=== PATIENT | female | born 1930 | race Two or more races ===

== ENCOUNTER 2017-10-18 13:05 | Inpatient (IN) | payer MEDICARE, OTHER ==
[~2017-10-18] VITALS: Ht 154.9 cm; Wt 73.2 kg
[~2017-10-18 13:05] MED LIST: ASPI-556 PO; CARB-119 PO; CLIN150C9 PO; COSO10OS OP; DICL4100G TP; FERR-89 PO; METF500T6 PO; METO100XL PO; MULT1TAB8 PO; NITR0.4T10 SL; OMEP20 PO; SERT50TA PO; SIMV-261 PO; VALS160T2 PO
[2017-10-18 13:17] LABS: GLUCOSE,POINT OF CARE 124 MG/DL (70-110)
[2017-10-18] MEDS ORDERED: CALC-1038 PO (13:17)
[2017-10-18] MEDS ORDERED: RANI150T7 PO (13:17)
[2017-10-18] MEDS ORDERED: SODIUM CHLORIDE 0.9% 1,000 ML IV ONE ×2 (15:15→19:15)
[2017-10-18] MEDS ORDERED: ONDANSETRON HCL 4 MG/2 ML VIAL IVP ONE (15:15)
[2017-10-18] MEDS ORDERED: PANTOPRAZOLE SODIUM 40 MG/VIAL IVP ONE ×2 (15:15→22:00)
[2017-10-18 15:21] LABS: APPEARANCE,URINE CLOUDY (CLEAR); BILIRUBIN,URINE NEGATIVE (NEGATIVE); GLUCOSE, URINE (UA) NEGATIVE (NEGATIVE); KETONES,URINE NEGATIVE (NEGATIVE); LEUKOCYTE ESTERASE ,URINE SMALL (NEGATIVE); NITRATE,URINE NEGATIVE (NEGATIVE); OCCULT BLOOD,URINE NEGATIVE (NEGATIVE); PROTEIN,URINE NEGATIVE (NEGATIVE)
[2017-10-18 15:29] LABS: RBC,URINE None Seen /HPF (0-2)
[2017-10-18 15:30] LABS: BACTERIA,URINE Few /HPF (None Seen); SQUAMOUS EPITHELIAL CELL,UR Many /LPF (None Seen)
[2017-10-18 16:11] LABS: BASOPHILS % (AUTO) 0.5 % (0.0-2.0); EOSINOPHILS % (AUTO) 0.8 % (1.0-6.0); HEMATOCRIT 21.2 % (36-46); HEMOGLOBIN 7.3 g/dL (12.0-16.0); LYMPHOCYTES % (AUTO) 17.3 % (22.0-44.0); MEAN CORPUSCULAR HEMOGLOBIN 32.6 pg (26.0-34.0); MEAN CORPUSCULAR HGB CONC 34.7 G/dL (31.0-37.0); MEAN CORPUSCULAR VOLUME 94 fL (80-100); MONOCYTES # (AUTO) 0.4 K/uL (0.1-1.0); MONOCYTES % (AUTO) 7.7 % (2.0-9.0); NEUTROPHILS # (AUTO) 4.1 K/uL (1.8-7.7); NEUTROPHILS % (AUTO) 73.7 % (40.0-70.0); PLATELET COUNT (AUTO) 181 K/uL (150-450); RED BLOOD CELL COUNT(AUTO) 2.25 MIL/uL (4.00-5.20); RED CELL DISTRIBUTION WIDTH 13.6 % (11.5-14.5)
[2017-10-18 16:28] LABS: ANION GAP 6 mmol/L (8-16); CALCIUM, TOTAL 8.5 mg/dL (8.8-10.5); CARBON DIOXIDE 27 mmol/L (22-29); CHLORIDE 108 mmol/L (98-107); CREATININE 0.87 mg/dL (0.60-1.30); GLOMERULAR FILTR. RATE CALC > 60 mL/min (>60); GLUCOSE,RANDOM 104 mg/dL (70-110); POTASSIUM 4.6 mmol/L (3.5-5.1); SODIUM SERUM 141 mmol/L (136-145); UREA NITROGEN, BLOOD 49 mg/dL (7-18)
[2017-10-18 16:34] LABS: ALANINE AMINOTRANSFERASE 52 U/L (12-78); ALBUMIN 2.9 g/dL (3.4-5.0); ALKALINE PHOSPHATASE 26 U/L (46-116); ASPARTATE AMINOTRANSFERASE 35 U/L (15-37); BILIRUBIN,TOTAL 0.2 mg/dL (0.1-1.0); LIPASE 83 U/L (73-393); TOTAL PROTEIN, SERUM 5.7 g/dL (6.4-8.2)
[2017-10-18] MEDS ORDERED: ACETAMINOPHEN 325 MG TABLET PO PRN ×2 (17:30)
[2017-10-18] MEDS ORDERED: 0.9% SODIUM CHLORIDE 10 ML SYRINGE IVP PRN (17:30)
[2017-10-18] MEDS ORDERED: ONDANSETRON HCL 4 MG/2 ML VIAL IVP PRN ×2 (17:30)
[2017-10-18 20:57] VITALS: BP 147/83
[2017-10-18] MEDS ORDERED: PANTOPRAZOLE SODIUM 80 MG in SODIUM CHLORIDE 0.9% 100 ML IV SCH (22:00)
[2017-10-18] MEDS ORDERED: SODIUM CHLORIDE 0.9% 250 ML IV ONE (23:17)
[2017-10-19] VITALS (7 sets, daily range): BP systolic 111–128; BP diastolic 61–72
[2017-10-19] MEDS ORDERED: ONDANSETRON HCL 4 MG/2 ML VIAL IVP PRN
[2017-10-19] MEDS: ACETAMINOPHEN 325 MG TABLET PO PRN (00:39)
[2017-10-19 06:43] LABS: GLUCOMETER DEV NAME(LOC) 5N 1P; GLUCOSE,POINT OF CARE 111 MG/DL (70-110)
[2017-10-19 07:11] LABS: HEMATOCRIT 18.4 % (36-46); HEMOGLOBIN 6.4 g/dL (12.0-16.0)
[2017-10-19] MEDS: MetFORMIN HCL 500 MG TABLET PO SCH ×2 (08:00→17:45)
[2017-10-19] MEDS ORDERED: DEXTROSE 50%-WATER 25 GM/50 ML SYRINGE IVP PRN (09:30)
[2017-10-19] MEDS: PANTOPRAZOLE SODIUM 80 MG in SODIUM CHLORIDE 0.9% 100 ML IV SCH ×2 (09:48→20:22)
[2017-10-19] MEDS ORDERED: PANTOPRAZOLE SODIUM 40 MG/VIAL IVP ONE (10:00)
[2017-10-19] MEDS: INSULIN LISPRO 100 UNITS/ML SQ PRN (11:33)
[2017-10-19 11:48] LABS: GLUCOMETER DEV NAME(LOC) 5N 1P; GLUCOSE,POINT OF CARE 86 MG/DL (70-110)
[2017-10-19] MEDS ORDERED: SODIUM CHLORIDE 0.9% 1,000 ML IV ONE ×2 (13:15→13:19)
[2017-10-19] MEDS ORDERED: IRON SUCROSE COMPLEX 200 MG in SODIUM CHLORIDE 0.9% 100 ML IV ONE (15:00)
[2017-10-19] MEDS: SERTRALINE HCL 50 MG TABLET PO SCH (16:06)
[2017-10-19] MEDS: MULTIVITAMINS WITH IRON TABLET PO SCH (16:06)
[2017-10-19] MEDS: CALCIUM OYSTER SHELL 500 MG TABLET PO SCH (16:07)
[2017-10-19] MEDS: CarBAMazepine 200 MG ER TABLET PO SCH ×2 (16:07→21:32)
[2017-10-19] MEDS: VALSARTAN 160 MG TABLET PO SCH (16:07)
[2017-10-19 17:28] LABS: GLUCOMETER DEV NAME(LOC) 5N 1P; GLUCOSE,POINT OF CARE 123 MG/DL (70-110)
[2017-10-19 17:32] LABS: HEMATOCRIT 20.3 % (36-46)
[2017-10-20 01:03] VITALS: BP 121/60
[2017-10-20 01:25] LABS: HEMATOCRIT 17.5 % (36-46); HEMOGLOBIN 6.1 g/dL (12.0-16.0)
[2017-10-20 03:47] LABS: GLUCOMETER DEV NAME(LOC) 5S 1M; GLUCOSE,POINT OF CARE 106 MG/DL (70-110)
[2017-10-20 04:56] VITALS: BP 132/73
[2017-10-20] MEDS: PANTOPRAZOLE SODIUM 80 MG in SODIUM CHLORIDE 0.9% 100 ML IV SCH ×2 (06:27→17:21)
[2017-10-20] MEDS ORDERED: PROPOFOL 1% 20 ML VIAL IVP ONE (06:59)
[2017-10-20] MEDS ORDERED: LIDOCAINE HCL/PF 2% 5 ML VIAL IM ONE (06:59)
[2017-10-20 07:27] VITALS: BP 97/48
[2017-10-20 07:42] LABS: HEMATOCRIT 17.9 % (36-46); HEMOGLOBIN 6.2 g/dL (12.0-16.0)
[2017-10-20] MEDS: VALSARTAN 160 MG TABLET PO SCH (08:26)
[2017-10-20] MEDS: CarBAMazepine 200 MG ER TABLET PO SCH ×2 (08:26→20:08)
[2017-10-20] MEDS: SERTRALINE HCL 50 MG TABLET PO SCH (08:26)
[2017-10-20] MEDS: MetFORMIN HCL 500 MG TABLET PO SCH ×2 (08:26→17:21)
[2017-10-20] MEDS: MULTIVITAMINS WITH IRON TABLET PO SCH (08:27)
[2017-10-20] MEDS: CALCIUM OYSTER SHELL 500 MG TABLET PO SCH (08:27)
[2017-10-20] MEDS ORDERED: MAGNESIUM SULFATE 2 GM, MVI, ADULT NO.1 WITH VIT K 10 ML, THIAMINE HCL 100 MG, FOLIC AC... IV ONE ×5 (09:45)
[2017-10-20 11:31] VITALS: BP 104/64
[2017-10-20] MEDS: FOLIC ACID 1 MG TABLET PO SCH ×2 (11:58→20:08)
[2017-10-20 12:08] LABS: GLUCOMETER DEV NAME(LOC) 5S 1M; GLUCOSE,POINT OF CARE 99 MG/DL (70-110)
[2017-10-20 12:08] LABS: GLUCOMETER DEV NAME(LOC) 5S 1M; GLUCOSE,POINT OF CARE 96 MG/DL (70-110)
[2017-10-20 15:46] VITALS: BP 110/60
[2017-10-20 19:34] VITALS: BP 101/57
[2017-10-20 23:03] LABS: GLUCOMETER DEV NAME(LOC) 5S 1M; GLUCOSE,POINT OF CARE 134 MG/DL (70-110)
[2017-10-21] VITALS (7 sets, daily range): BP systolic 97–128; BP diastolic 52–71
[2017-10-21 01:22] LABS: GLUCOMETER DEV NAME(LOC) 5N 1P; GLUCOSE,POINT OF CARE 98 MG/DL (70-110)
[2017-10-21] MEDS: DEXTROSE 5%-0.9% SODIUM CHL 1,000 ML IV SCH ×3 (01:27→22:02)
[2017-10-21] MEDS: PANTOPRAZOLE SODIUM 80 MG in SODIUM CHLORIDE 0.9% 100 ML IV SCH ×3 (03:31→22:28)
[2017-10-21] MEDS: INSULIN LISPRO 100 UNITS/ML SQ PRN ×2 (05:52→20:51)
[2017-10-21 05:57] LABS: GLUCOMETER DEV NAME(LOC) 5S 1M; GLUCOSE,POINT OF CARE 152 MG/DL (70-110)
[2017-10-21] MEDS: CALCIUM OYSTER SHELL 500 MG TABLET PO SCH (08:01)
[2017-10-21] MEDS: MetFORMIN HCL 500 MG TABLET PO SCH ×2 (08:01→17:22)
[2017-10-21] MEDS: SERTRALINE HCL 50 MG TABLET PO SCH (08:01)
[2017-10-21] MEDS: CarBAMazepine 200 MG ER TABLET PO SCH ×2 (08:01→20:52)
[2017-10-21] MEDS: MULTIVITAMINS WITH IRON TABLET PO SCH (08:01)
[2017-10-21] MEDS: FOLIC ACID 1 MG TABLET PO SCH ×2 (08:01→20:58)
[2017-10-21] MEDS: VALSARTAN 160 MG TABLET PO SCH (08:05)
[2017-10-21 11:43] LABS: GLUCOMETER DEV NAME(LOC) 5N 1P; GLUCOSE,POINT OF CARE 124 MG/DL (70-110)
[2017-10-21 18:03] LABS: GLUCOMETER DEV NAME(LOC) 5S 1M; GLUCOSE,POINT OF CARE 107 MG/DL (70-110)
[2017-10-22 03:13] LABS: GLUCOMETER DEV NAME(LOC) 5N 1P; GLUCOSE,POINT OF CARE 158 MG/DL (70-110)
[2017-10-22] MEDS: INSULIN LISPRO 100 UNITS/ML SQ PRN ×2 (05:56→20:08)
[2017-10-22] MEDS: PANTOPRAZOLE SODIUM 80 MG in SODIUM CHLORIDE 0.9% 100 ML IV SCH ×2 (06:22→17:44)
[2017-10-22 07:37] VITALS: BP 101/46
[2017-10-22] MEDS: VALSARTAN 160 MG TABLET PO SCH (07:42)
[2017-10-22] MEDS: MetFORMIN HCL 500 MG TABLET PO SCH ×2 (07:42→17:44)
[2017-10-22] MEDS: CarBAMazepine 200 MG ER TABLET PO SCH ×2 (07:43→20:09)
[2017-10-22] MEDS: FOLIC ACID 1 MG TABLET PO SCH ×2 (07:43→20:09)
[2017-10-22] MEDS: SERTRALINE HCL 50 MG TABLET PO SCH (07:43)
[2017-10-22] MEDS: CALCIUM OYSTER SHELL 500 MG TABLET PO SCH (07:43)
[2017-10-22] MEDS: MULTIVITAMINS WITH IRON TABLET PO SCH (07:43)
[2017-10-22] MEDS: DEXTROSE 5%-0.9% SODIUM CHL 1,000 ML IV SCH ×2 (07:44→17:50)
[2017-10-22 10:00] LABS: BASOPHILS % (AUTO) 0.6 % (0.0-2.0); EOSINOPHILS % (AUTO) 3.4 % (1.0-6.0); LYMPHOCYTES # (AUTO) 0.9 K/uL (1.0-4.8); LYMPHOCYTES % (AUTO) 21.8 % (22.0-44.0); MEAN CORPUSCULAR HEMOGLOBIN 33.8 pg (26.0-34.0); MEAN CORPUSCULAR HGB CONC 34.8 G/dL (31.0-37.0); MEAN CORPUSCULAR VOLUME 97 fL (80-100); MONOCYTES # (AUTO) 0.3 K/uL (0.1-1.0); MONOCYTES % (AUTO) 7.6 % (2.0-9.0); NEUTROPHILS # (AUTO) 2.6 K/uL (1.8-7.7); NEUTROPHILS % (AUTO) 66.6 % (40.0-70.0); PLATELET COUNT (AUTO) 203 K/uL (150-450); RED BLOOD CELL COUNT(AUTO) 1.88 MIL/uL (4.00-5.20); RED CELL DISTRIBUTION WIDTH 14.3 % (11.5-14.5)
[2017-10-22 10:08] LABS: ANION GAP 7 mmol/L (8-16); CALCIUM, TOTAL 7.4 mg/dL (8.8-10.5); CARBON DIOXIDE 24 mmol/L (22-29); CHLORIDE 110 mmol/L (98-107); CREATININE 0.73 mg/dL (0.60-1.30); GLOMERULAR FILTR. RATE CALC > 60 mL/min (>60); GLUCOSE,RANDOM 105 mg/dL (70-110); HEMOGLOBIN 6.4 g/dL (12.0-16.0); POTASSIUM 3.9 mmol/L (3.5-5.1); SODIUM SERUM 141 mmol/L (136-145); UREA NITROGEN, BLOOD 3 mg/dL (7-18)
[2017-10-22 10:09] LABS: HEMATOCRIT 18.3 % (36-46)
[2017-10-22 10:14] LABS: ALANINE AMINOTRANSFERASE 39 U/L (12-78); ALBUMIN 2.9 g/dL (3.4-5.0); ALKALINE PHOSPHATASE 25 U/L (46-116); ASPARTATE AMINOTRANSFERASE 19 U/L (15-37); BILIRUBIN,TOTAL 0.1 mg/dL (0.1-1.0); TOTAL PROTEIN, SERUM 5.7 g/dL (6.4-8.2)
[2017-10-22] MEDS ORDERED: IRON SUCROSE COMPLEX 100 MG in SODIUM CHLORIDE 0.9% 100 ML IV SCH (11:00)
[2017-10-22 11:38] LABS: GLUCOMETER DEV NAME(LOC) 5N 1P; GLUCOSE,POINT OF CARE 109 MG/DL (70-110)
[2017-10-22 11:38] LABS: GLUCOMETER DEV NAME(LOC) 5N 1P; GLUCOSE,POINT OF CARE 81 MG/DL (70-110)
[2017-10-22 12:06] VITALS: BP 139/81
[2017-10-22 15:14] VITALS: BP 122/60
[2017-10-22] MEDS ORDERED: MAGNESIUM SULFATE 2 GM, MVI, ADULT NO.1 WITH VIT K 10 ML, THIAMINE HCL 100 MG, FOLIC AC... IV ONE ×5 (16:30)
[2017-10-22 19:57] VITALS: BP 140/62
[2017-10-22 21:18] LABS: GLUCOMETER DEV NAME(LOC) 5N 1P; GLUCOSE,POINT OF CARE 110 MG/DL (70-110)
[2017-10-22 23:44] VITALS: BP 115/53
[2017-10-23] MEDS: PANTOPRAZOLE SODIUM 80 MG in SODIUM CHLORIDE 0.9% 100 ML IV SCH (04:31)
[2017-10-23 04:48] VITALS: BP 124/61
[2017-10-23 05:02] LABS: GLUCOMETER DEV NAME(LOC) 5S 1M; GLUCOSE,POINT OF CARE 121 MG/DL (70-110)
[2017-10-23] MEDS: DEXTROSE 5%-0.9% SODIUM CHL 1,000 ML IV SCH ×2 (06:15→16:21)
[2017-10-23] MEDS: INSULIN LISPRO 100 UNITS/ML SQ PRN (06:17)
[2017-10-23 07:31] VITALS: BP 131/69
[2017-10-23] MEDS: ACETAMINOPHEN 325 MG TABLET PO PRN (07:32)
[2017-10-23 08:13] LABS: GLUCOMETER DEV NAME(LOC) 5N 1P; GLUCOSE,POINT OF CARE 89 MG/DL (70-110)
[2017-10-23] MEDS: VALSARTAN 160 MG TABLET PO SCH (08:14)
[2017-10-23] MEDS: SERTRALINE HCL 50 MG TABLET PO SCH (08:15)
[2017-10-23] MEDS: MetFORMIN HCL 500 MG TABLET PO SCH ×2 (08:15→17:47)
[2017-10-23] MEDS: CarBAMazepine 200 MG ER TABLET PO SCH ×2 (08:15→20:45)
[2017-10-23] MEDS: CALCIUM OYSTER SHELL 500 MG TABLET PO SCH (08:15)
[2017-10-23] MEDS: MULTIVITAMINS WITH IRON TABLET PO SCH (08:15)
[2017-10-23] MEDS: FOLIC ACID 1 MG TABLET PO SCH ×2 (08:15→20:45)
[2017-10-23 09:07] LABS: HEMOGLOBIN 6.1 g/dL (12.0-16.0)
[2017-10-23 11:21] VITALS: BP 131/60
[2017-10-23 16:07] LABS: GLUCOMETER DEV NAME(LOC) 5N 1P; GLUCOSE,POINT OF CARE 113 MG/DL (70-110)
[2017-10-23 16:22] VITALS: BP 132/70
[2017-10-23 18:08] LABS: GLUCOMETER DEV NAME(LOC) 5S 1M; GLUCOSE,POINT OF CARE 110 MG/DL (70-110)
[2017-10-23 19:19] VITALS: BP 145/76
[2017-10-23] MEDS: PANTOPRAZOLE SODIUM 40 MG/VIAL IVP SCH (20:45)
[2017-10-24] VITALS (7 sets, daily range): BP systolic 114–144; BP diastolic 57–79
[2017-10-24] MEDS: DEXTROSE 5%-0.9% SODIUM CHL 1,000 ML IV SCH (04:16)
[2017-10-24 04:32] LABS: GLUCOMETER DEV NAME(LOC) 5N 1P; GLUCOSE,POINT OF CARE 119 MG/DL (70-110)
[2017-10-24] MEDS: IRON SUCROSE COMPLEX 100 MG in SODIUM CHLORIDE 0.9% 100 ML IV SCH (08:54)
[2017-10-24] MEDS: FOLIC ACID 1 MG TABLET PO SCH ×2 (08:55→20:55)
[2017-10-24] MEDS: PANTOPRAZOLE SODIUM 40 MG/VIAL IVP SCH ×2 (08:55→20:55)
[2017-10-24] MEDS: VALSARTAN 160 MG TABLET PO SCH (08:56)
[2017-10-24] MEDS: MULTIVITAMINS WITH IRON TABLET PO SCH (08:56)
[2017-10-24] MEDS: SERTRALINE HCL 50 MG TABLET PO SCH (08:56)
[2017-10-24] MEDS: CarBAMazepine 200 MG ER TABLET PO SCH ×2 (08:56→20:55)
[2017-10-24] MEDS: CALCIUM OYSTER SHELL 500 MG TABLET PO SCH (08:56)
[2017-10-24] MEDS: MetFORMIN HCL 500 MG TABLET PO SCH ×2 (08:56→17:31)
[2017-10-24 09:27] LABS: GLUCOMETER DEV NAME(LOC) 5S 1M; GLUCOSE,POINT OF CARE 112 MG/DL (70-110)
[2017-10-24 09:42] LABS: HEMOGLOBIN 6.3 g/dL (12.0-16.0)
[2017-10-24] MEDS: ACETAMINOPHEN 325 MG TABLET PO PRN ×2 (09:42→21:08)
[2017-10-24 14:03] LABS: GLUCOMETER DEV NAME(LOC) 5S 1M; GLUCOSE,POINT OF CARE 87 MG/DL (70-110)
[2017-10-25 04:32] VITALS: BP 120/59
[2017-10-25 07:36] VITALS: BP 117/78
[2017-10-25 07:52] LABS: HEMATOCRIT 17.2 % (36-46)
[2017-10-25 07:58] LABS: GLUCOMETER DEV NAME(LOC) 5N 1P; GLUCOSE,POINT OF CARE 107 MG/DL (70-110)
[2017-10-25 07:58] LABS: GLUCOMETER DEV NAME(LOC) 5N 1P; GLUCOSE,POINT OF CARE 92 MG/DL (70-110)
[2017-10-25 07:58] LABS: GLUCOMETER DEV NAME(LOC) 5N 1P; GLUCOSE,POINT OF CARE 94 MG/DL (70-110)
[2017-10-25] MEDS: MetFORMIN HCL 500 MG TABLET PO SCH ×2 (09:18→17:51)
[2017-10-25] MEDS: MULTIVITAMINS WITH IRON TABLET PO SCH (09:18)
[2017-10-25] MEDS: PANTOPRAZOLE SODIUM 40 MG/VIAL IVP SCH ×2 (09:18→20:50)
[2017-10-25] MEDS: CarBAMazepine 200 MG ER TABLET PO SCH ×2 (09:18→20:50)
[2017-10-25] MEDS: VALSARTAN 160 MG TABLET PO SCH (09:18)
[2017-10-25] MEDS: SERTRALINE HCL 50 MG TABLET PO SCH (09:19)
[2017-10-25] MEDS: FOLIC ACID 1 MG TABLET PO SCH ×2 (09:19→20:50)
[2017-10-25] MEDS: CALCIUM OYSTER SHELL 500 MG TABLET PO SCH (09:19)
[2017-10-25 12:07] VITALS: BP 135/64
[2017-10-25] MEDS: SUCRALFATE 1 GM/10 ML SUSPENSION UDCUP PO SCH ×3 (12:46→20:50)
[2017-10-25 13:32] LABS: GLUCOMETER DEV NAME(LOC) 5S 1M; GLUCOSE,POINT OF CARE 93 MG/DL (70-110)
[2017-10-25 15:33] VITALS: BP 133/92
[2017-10-25 18:53] LABS: GLUCOMETER DEV NAME(LOC) 5N 1P; GLUCOSE,POINT OF CARE 95 MG/DL (70-110)
[2017-10-25 19:39] VITALS: BP 149/86
[2017-10-25 22:32] LABS: GLUCOMETER DEV NAME(LOC) 5N 1P; GLUCOSE,POINT OF CARE 89 MG/DL (70-110)
[2017-10-25 23:55] VITALS: BP 155/85
[2017-10-26 04:58] VITALS: BP 132/63
[2017-10-26 06:38] LABS: GLUCOMETER DEV NAME(LOC) 5N 1P; GLUCOSE,POINT OF CARE 97 MG/DL (70-110)
[2017-10-26 06:51] LABS: HEMATOCRIT 17.1 % (36-46)
[2017-10-26 07:27] VITALS: BP 142/80
[2017-10-26] MEDS: CALCIUM OYSTER SHELL 500 MG TABLET PO SCH (08:32)
[2017-10-26] MEDS: FOLIC ACID 1 MG TABLET PO SCH (08:32)
[2017-10-26] MEDS: MULTIVITAMINS WITH IRON TABLET PO SCH (08:32)
[2017-10-26] MEDS: CarBAMazepine 200 MG ER TABLET PO SCH (08:32)
[2017-10-26] MEDS: VALSARTAN 160 MG TABLET PO SCH (08:32)
[2017-10-26] MEDS: MetFORMIN HCL 500 MG TABLET PO SCH (08:32)
[2017-10-26] MEDS: PANTOPRAZOLE SODIUM 40 MG/VIAL IVP SCH (08:33)
[2017-10-26] MEDS: IRON SUCROSE COMPLEX 100 MG in SODIUM CHLORIDE 0.9% 100 ML IV SCH (08:33)
[2017-10-26] MEDS: SUCRALFATE 1 GM/10 ML SUSPENSION UDCUP PO SCH ×2 (08:33→12:02)
[2017-10-26] MEDS ORDERED: SERTRALINE HCL 50 MG TABLET PO SCH (09:00)
[2017-10-26] MEDS ORDERED: ACET-784 PO (10:35)
[2017-10-26] MEDS ORDERED: PANT40TA25 PO (10:36)
[2017-10-26] MEDS ORDERED: SUCR1TAB PO (10:36)
[2017-10-26] MEDS ORDERED: FOLI1 PO (10:37)
[2017-10-26 11:48] VITALS: BP 132/71
[2017-10-26] MEDS ORDERED: FERR-89 PO (15:01)
[2017-10-27 06:23] LABS: GLUCOMETER DEV NAME(LOC) 5S 1M; GLUCOSE,POINT OF CARE 110 MG/DL (70-110)
== END 2017-10-26 15:30 | disposition home or self-care (01) | DRG 378 ==
LOC: EMS 13:06 → 5S 19:00
PROVIDERS: ADMIT Internal Medicine; ATTEND Internal Medicine
PROC: 0DB78ZX Excision of Stomach, Pylorus, Via Natural or Artificial Opening Endoscopic, Diagnostic (ICD-10-PCS; principal; 2017-10-19 14:30)
DX: K25.4 Chronic or unspecified gastric ulcer with hemorrhage (principal); D62 Acute posthemorrhagic anemia; E11.9 Type 2 diabetes mellitus without complications; D71 Functional disorders of polymorphonuclear neutrophils; E78.00 Pure hypercholesterolemia, unspecified; E78.5 Hyperlipidemia, unspecified; F32.9 Major depressive disorder, single episode, unspecified; I10 Essential (primary) hypertension; K21.9 Gastro-esophageal reflux disease without esophagitis; I70.0 Atherosclerosis of aorta; K57.90 Diverticulosis of intestine, part unspecified, without perforation or abscess without bleeding; M19.90 Unspecified osteoarthritis, unspecified site; M81.0 Age-related osteoporosis without current pathological fracture; Z53.1 Procedure and treatment not carried out because of patient's decision for reasons of belief and group pressure; Z90.710 Acquired absence of both cervix and uterus; Z88.8 Allergy status to other drugs, medicaments and biological substances; Z79.82 Long term (current) use of aspirin; Z82.49 Family history of ischemic heart disease and other diseases of the circulatory system; Z83.3 Family history of diabetes mellitus
CPT/HCPCS: 74176; 82271; 85014; 85018; 88305; 88312; 93005; 96361; 96374; 96375; 99285; C9113; J1756; J2405; J2704; J3411; J3475; J3490; J7030; J7042; J7050

== ENCOUNTER → 2018-07-20 | Outpatient (CLI) | payer MEDICARE, OTHER ==
[~2018-07-20] MED LIST changes: +ACET-784 PO; -ASPI-556 PO; +ASPI81 PO; +CALC-1038 PO; +CARV6 PO; -CLIN150C9 PO; -COSO10OS OP; -DICL4100G TP; +LOSA100T58 PO; +METF-960 PO; -METF500T6 PO; -METO100XL PO; -NITR0.4T10 SL; -OMEP20 PO; +PANT40TA25 PO; +SIMV-260 PO; -SIMV-261 PO; -VALS160T2 PO; +VITAD1000 PO
[2018-07-20 13:10] LABS: BASOPHILS % (AUTO) 0.8 % (0.0-2.0); EOSINOPHILS % (AUTO) 2.8 % (1.0-6.0); HEMATOCRIT 25.9 % (36-46); HEMOGLOBIN 8.8 g/dL (12.0-16.0); LYMPHOCYTES % (AUTO) 20.1 % (22.0-44.0); MEAN CORPUSCULAR HEMOGLOBIN 33.5 pg (26.0-34.0); MEAN CORPUSCULAR VOLUME 98 fL (80-100); MONOCYTES # (AUTO) 0.5 K/uL (0.1-1.0); MONOCYTES % (AUTO) 8.9 % (2.0-9.0); NEUTROPHILS # (AUTO) 3.4 K/uL (1.8-7.7); NEUTROPHILS % (AUTO) 67.4 % (40.0-70.0); PLATELET COUNT (AUTO) 313 K/uL (150-450); RED BLOOD CELL COUNT(AUTO) 2.64 MIL/uL (4.00-5.20); RED CELL DISTRIBUTION WIDTH 15.4 % (11.5-14.5)
[2018-07-20 13:51] LABS: ALBUMIN 3.6 g/dL (3.4-5.0); ALKALINE PHOSPHATASE 35 U/L (46-116); ANION GAP 6 mmol/L (8-16); ASPARTATE AMINOTRANSFERASE 21 U/L (15-37); BILIRUBIN,TOTAL 0.2 mg/dL (0.1-1.0); CALCIUM, TOTAL 9.3 mg/dL (8.8-10.5); CARBON DIOXIDE 29 mmol/L (22-29); CHLORIDE 100 mmol/L (98-107); CREATININE 0.75 mg/dL (0.60-1.30); GLUCOSE,RANDOM 98 mg/dL (70-110); POTASSIUM 4.9 mmol/L (3.5-5.1); SODIUM SERUM 135 mmol/L (136-145); TOTAL PROTEIN, SERUM 7.1 g/dL (6.4-8.2); UREA NITROGEN, BLOOD 17 mg/dL (7-18)
[2018-07-20 13:53] LABS: GLOMERULAR FILTR. RATE CALC > 60 mL/min (>60)
[2018-07-20 14:00] LABS: ALANINE AMINOTRANSFERASE 21 U/L (12-78)
[2018-07-20 14:24] LABS: HEMOGLOBIN A1C 5.8 % (4.5-6.2)
== END | disposition home or self-care (01) ==
LOC: LABPV 10:05
PROVIDERS: ATTEND Internal Medicine Cardiovascular Disease
DX: D64.9 Anemia, unspecified (principal); R00.2 Palpitations; E11.9 Type 2 diabetes mellitus without complications
CPT/HCPCS: 83036

== ENCOUNTER → 2018-08-17 | Outpatient (CLI) | payer MEDICARE, OTHER | END | disposition home or self-care (01) | LOC: RADMN 09:38 | PROVIDERS: ATTEND General Practice | DX: I67.82 Cerebral ischemia (principal); I70.209 Unspecified atherosclerosis of native arteries of extremities, unspecified extremity; J32.0 Chronic maxillary sinusitis | CPT/HCPCS: 70450; 70486 ==

== ENCOUNTER → 2018-08-31 | Outpatient (CLI) | payer MEDICARE, OTHER ==
[~2018-08-31] VITALS: Ht 147.3 cm; Wt 75.0 kg
[~2018-08-31] MED LIST changes: +ATOR40TA28 PO; +OYSTER SHELL PO; +[UNRECOGNIZED DRUG - OTHER] PO
[2018-08-31 10:55] VITALS: BP 140/87
== END | disposition home or self-care (01) ==
LOC: SRCNTR 10:35
PROVIDERS: ATTEND Internal Medicine Cardiovascular Disease
DX: E78.5 Hyperlipidemia, unspecified (principal); E11.9 Type 2 diabetes mellitus without complications; K92.2 Gastrointestinal hemorrhage, unspecified; I10 Essential (primary) hypertension; D64.9 Anemia, unspecified
CPT/HCPCS: G0463

== ENCOUNTER → 2018-10-25 | Outpatient (CLI) | payer MEDICARE, OTHER ==
[~2018-10-25] MED LIST changes: -CARV6 PO; -METF-960 PO
[2018-10-25 12:58] LABS: BASOPHILS % (AUTO) 0.8 % (0.0-2.0); EOSINOPHILS % (AUTO) 3.2 % (1.0-6.0); HEMATOCRIT 34.2 % (36-46); HEMOGLOBIN 11.4 g/dL (12.0-16.0); LYMPHOCYTES # (AUTO) 1.1 K/uL (1.0-4.8); MEAN CORPUSCULAR HGB CONC 33.4 G/dL (31.0-37.0); MEAN CORPUSCULAR VOLUME 96 fL (80-100); MONOCYTES # (AUTO) 0.5 K/uL (0.1-1.0); MONOCYTES % (AUTO) 10.3 % (2.0-9.0); NEUTROPHILS # (AUTO) 3.1 K/uL (1.8-7.7); NEUTROPHILS % (AUTO) 63.7 % (40.0-70.0); PLATELET COUNT (AUTO) 196 K/uL (150-450); RED BLOOD CELL COUNT(AUTO) 3.56 MIL/uL (4.00-5.20); RED CELL DISTRIBUTION WIDTH 14.4 % (11.5-14.5)
[2018-10-25 13:30] LABS: ALANINE AMINOTRANSFERASE 13 U/L (12-78); ALBUMIN 3.5 g/dL (3.4-5.0); ALKALINE PHOSPHATASE 47 U/L (46-116); ANION GAP 7 mmol/L (8-16); ASPARTATE AMINOTRANSFERASE 17 U/L (15-37); BILIRUBIN,TOTAL 0.2 mg/dL (0.1-1.0); CARBON DIOXIDE 28 mmol/L (22-29); CHLORIDE 104 mmol/L (98-107); CHOL/HDL RATIO 3.8 (3.9-5.7); CHOLESTEROL 162 mg/dL (131-200); CREATININE 0.67 mg/dL (0.60-1.30); GLUCOSE,RANDOM 103 mg/dL (70-110); HDL CHOLESTEROL 43 mg/dL (40-60); LDL CHOL (CALC.) 98 mg/dL (0-130); POTASSIUM 5.2 mmol/L (3.5-5.1); SODIUM SERUM 139 mmol/L (136-145); TRIGLYCERIDES 103 mg/dL (15-150); UREA NITROGEN, BLOOD 19 mg/dL (7-18)
[2018-10-25 13:31] LABS: GLOMERULAR FILTR. RATE CALC > 60 mL/min (>60)
== END | disposition home or self-care (01) ==
LOC: LABPV 10:29
PROVIDERS: ATTEND Internal Medicine Cardiovascular Disease
DX: K92.2 Gastrointestinal hemorrhage, unspecified (principal); D64.9 Anemia, unspecified; E11.9 Type 2 diabetes mellitus without complications; I10 Essential (primary) hypertension; E78.5 Hyperlipidemia, unspecified; K21.9 Gastro-esophageal reflux disease without esophagitis; Z90.710 Acquired absence of both cervix and uterus; E78.00 Pure hypercholesterolemia, unspecified; Z88.8 Allergy status to other drugs, medicaments and biological substances

== ENCOUNTER → 2018-11-01 | Outpatient (CLI) | payer MEDICARE, OTHER ==
[~2018-11-01] VITALS: Ht 147.3 cm; Wt 75.0 kg
[2018-11-01 14:46] VITALS: BP 128/61
== END | disposition home or self-care (01) ==
LOC: SRCNTR 14:17
PROVIDERS: ATTEND Internal Medicine Cardiovascular Disease
DX: I10 Essential (primary) hypertension (principal); E11.9 Type 2 diabetes mellitus without complications; E78.5 Hyperlipidemia, unspecified; M19.90 Unspecified osteoarthritis, unspecified site; D64.9 Anemia, unspecified
CPT/HCPCS: G0463

== ENCOUNTER 2019-03-29 14:59 | Emergency (ER) | payer MEDICARE, OTHER ==
[~2019-03-29] VITALS: Ht 152.4 cm; Wt 68.2 kg
[~2019-03-29 14:59] MED LIST changes: +CHOL100018 PO; -VITAD1000 PO
[2019-03-29] MEDS ORDERED: IOVERSOL 320 MG/ML 100 ML VIAL ONE (16:13)
[2019-03-29] MEDS ORDERED: SODIUM CHLORIDE 0.9% 100 ML ONE (16:13)
[2019-03-29 16:31] LABS: BASOPHILS % (AUTO) 0.7 % (0.0-2.0); EOSINOPHILS % (AUTO) 2.2 % (1.0-6.0); HEMATOCRIT 35.7 % (36-46); HEMOGLOBIN 11.7 g/dL (12.0-16.0); LYMPHOCYTES # (AUTO) 1.1 K/uL (1.0-4.8); MEAN CORPUSCULAR HEMOGLOBIN 32.2 pg (26.0-34.0); MEAN CORPUSCULAR HGB CONC 32.8 G/dL (31.0-37.0); MEAN CORPUSCULAR VOLUME 98 fL (80-100); MONOCYTES # (AUTO) 0.4 K/uL (0.1-1.0); MONOCYTES % (AUTO) 8.5 % (2.0-9.0); NEUTROPHILS # (AUTO) 3.4 K/uL (1.8-7.7); NEUTROPHILS % (AUTO) 67.6 % (40.0-70.0); PLATELET COUNT (AUTO) 243 K/uL (150-450); RED BLOOD CELL COUNT(AUTO) 3.64 MIL/uL (4.00-5.20); RED CELL DISTRIBUTION WIDTH 14.1 % (11.5-14.5)
[2019-03-29 16:48] LABS: LACTIC ACID 1.1 mmol/L (0.4-2.0); PROTHROMBIN TIME 10.1 SEC (9.4-11.6)
[2019-03-29 16:52] LABS: ANION GAP 8 mmol/L (8-16); CARBON DIOXIDE 29 mmol/L (22-29); CHLORIDE 103 mmol/L (98-107); CREATININE 0.86 mg/dL (0.60-1.30); GLOMERULAR FILTR. RATE CALC > 60 mL/min (>60); GLUCOSE,RANDOM 95 mg/dL (70-110); POTASSIUM 4.3 mmol/L (3.5-5.1); SODIUM SERUM 140 mmol/L (136-145); UREA NITROGEN, BLOOD 18 mg/dL (7-18)
[2019-03-29 16:57] LABS: ALANINE AMINOTRANSFERASE 15 U/L (12-78); ALBUMIN 3.8 g/dL (3.4-5.0); ALKALINE PHOSPHATASE 43 U/L (46-116); ASPARTATE AMINOTRANSFERASE 14 U/L (15-37); BILIRUBIN,TOTAL 0.4 mg/dL (0.1-1.0); TOTAL PROTEIN, SERUM 7.3 g/dL (6.4-8.2)
[2019-03-29] MEDS ORDERED: ACETAMINOPHEN 325 MG TABLET PO ONE (17:15)
[2019-03-29 18:43] LABS: APPEARANCE,URINE CLEAR (CLEAR); BILIRUBIN,URINE NEGATIVE (NEGATIVE); GLUCOSE, URINE (UA) NEGATIVE (NEGATIVE); KETONES,URINE NEGATIVE (NEGATIVE); LEUKOCYTE ESTERASE ,URINE NEGATIVE (NEGATIVE); NITRATE,URINE NEGATIVE (NEGATIVE); OCCULT BLOOD,URINE NEGATIVE (NEGATIVE); PROTEIN,URINE NEGATIVE (NEGATIVE)
[2019-03-29 21:39] VITALS: BP 163/83
== END 2019-03-29 21:40 | disposition home or self-care (01) ==
LOC: EMS 15:04
DX: K80.20 Calculus of gallbladder without cholecystitis without obstruction (principal); K62.5 Hemorrhage of anus and rectum; E78.00 Pure hypercholesterolemia, unspecified; E78.5 Hyperlipidemia, unspecified; E11.9 Type 2 diabetes mellitus without complications; I10 Essential (primary) hypertension; M19.90 Unspecified osteoarthritis, unspecified site; M81.0 Age-related osteoporosis without current pathological fracture; Z79.899 Other long term (current) drug therapy; Z88.8 Allergy status to other drugs, medicaments and biological substances
CPT/HCPCS: 36415; 74177; 76705; 80053; 81003; 82270; 82271; 82962; 83605; 85025; 85610; 99284; J7050; Q9967

== ENCOUNTER → 2019-07-26 | Outpatient (CLI) | payer MEDICARE, OTHER ==
[~2019-07-26] VITALS: Ht 147.3 cm; Wt 75.0 kg
[~2019-07-26] MED LIST changes: +ASPI-728 PO; -ASPI81 PO; +CARV6.2534 PO; +MECL-110 PO; +METF500T PO
[2019-07-26 10:34] VITALS: BP 127/76
== END | disposition home or self-care (01) ==
LOC: SRCNTR 10:30
PROVIDERS: ATTEND Internal Medicine Cardiovascular Disease
DX: D64.9 Anemia, unspecified (principal); R07.9 Chest pain, unspecified; I10 Essential (primary) hypertension; M19.90 Unspecified osteoarthritis, unspecified site; E11.9 Type 2 diabetes mellitus without complications; E78.5 Hyperlipidemia, unspecified
CPT/HCPCS: 93005; G0463

== ENCOUNTER → 2019-08-01 | Outpatient (CLI) | payer MEDICARE, OTHER ==
[~2019-08-01] MED LIST changes: -ASPI-728 PO; +ASPI81 PO; -CARV6.2534 PO; -MECL-110 PO; -METF500T PO
== END | disposition home or self-care (01) ==
LOC: RADPV 10:34
PROVIDERS: ATTEND Internal Medicine Cardiovascular Disease
DX: I08.0 Rheumatic disorders of both mitral and aortic valves (principal); R01.1 Cardiac murmur, unspecified
CPT/HCPCS: 93306

== ENCOUNTER → 2019-08-30 | Outpatient (CLI) | payer MEDICARE, OTHER ==
[~2019-08-30] VITALS: Ht 147.3 cm; Wt 77.0 kg
[~2019-08-30] MED LIST changes: +ASPI-728 PO; -ASPI81 PO; +CARV6.2534 PO; +MECL-110 PO; +METF500T PO
[2019-08-30 11:04] VITALS: BP 145/65
== END | disposition home or self-care (01) ==
LOC: SRCNTR 11:03
PROVIDERS: ATTEND Internal Medicine Cardiovascular Disease
DX: I10 Essential (primary) hypertension (principal); R07.9 Chest pain, unspecified; D64.9 Anemia, unspecified; E11.9 Type 2 diabetes mellitus without complications; E78.5 Hyperlipidemia, unspecified; M19.90 Unspecified osteoarthritis, unspecified site
CPT/HCPCS: G0463

== ENCOUNTER 2020-11-23 03:31 | Emergency (ER) | payer MEDICARE, OTHER ==
[~2020-11-23] VITALS: Ht 165.1 cm; Wt 80.0 kg
[~2020-11-23 03:31] MED LIST changes: -ASPI-728 PO; -MULT1TAB8 PO; +PANT-31 PO; -PANT40TA25 PO; -SIMV-260 PO
[2020-11-23] MEDS ORDERED: SODIUM CHLORIDE 0.9% 1,000 ML IV ONE (04:30)
[2020-11-23] MEDS ORDERED: ONDANSETRON HCL 4 MG/2 ML VIAL IVP ONE (04:30)
[2020-11-23 04:31] LABS: COVID AG,FIA SOURCE NASOPHARYNGEAL
[2020-11-23 04:57] LABS: BASOPHILS % (AUTO) 0.4 % (0.0-2.0); EOSINOPHILS % (AUTO) 1.9 % (1.0-6.0); HEMATOCRIT 32.6 % (36-46); HEMOGLOBIN 11.1 g/dL (12.0-16.0); LYMPHOCYTES % (AUTO) 15.1 % (22.0-44.0); MEAN CORPUSCULAR HEMOGLOBIN 32.3 pg (26.0-34.0); MEAN CORPUSCULAR HGB CONC 34.1 G/dL (31.0-37.0); MEAN CORPUSCULAR VOLUME 95 fL (80-100); MONOCYTES # (AUTO) 0.6 K/uL (0.1-1.0); MONOCYTES % (AUTO) 8.7 % (2.0-9.0); NEUTROPHILS # (AUTO) 4.9 K/uL (1.8-7.7); NEUTROPHILS % (AUTO) 73.9 % (40.0-70.0); PLATELET COUNT (AUTO) 194 K/uL (150-450); RED BLOOD CELL COUNT(AUTO) 3.44 MIL/uL (4.00-5.20)
[2020-11-23 05:07] LABS: CALCIUM, TOTAL 9.2 mg/dL (8.8-10.5); CREATININE 1.42 mg/dL (0.60-1.30); POTASSIUM 3.8 mmol/L (3.5-5.1)
[2020-11-23 05:32] LABS: ALBUMIN 3.8 g/dL (3.4-5.0); BILIRUBIN,TOTAL 0.5 mg/dL (0.1-1.0); MAGNESIUM 1.4 mg/dL (1.80-2.40); TOTAL PROTEIN, SERUM 6.5 g/dL (6.4-8.2)
[2020-11-23] MEDS ORDERED: IOHEXOL 350 MG/ML 100 ML VIAL ONE (05:35)
[2020-11-23] MEDS ORDERED: SODIUM CHLORIDE 0.9% 100 ML ONE (05:36)
[2020-11-23] MEDS ORDERED: MAGNESIUM SULFATE 1 GM in DEXTROSE 5%-WATER 50 ML IV ONE (06:00)
[2020-11-23 06:31] LABS: APPEARANCE,URINE CLEAR (CLEAR); BILIRUBIN,URINE NEGATIVE (NEGATIVE); GLUCOSE, URINE (UA) NEGATIVE (NEGATIVE); KETONES,URINE NEGATIVE (NEGATIVE); LEUKOCYTE ESTERASE ,URINE NEGATIVE (NEGATIVE); NITRATE,URINE NEGATIVE (NEGATIVE); OCCULT BLOOD,URINE NEGATIVE (NEGATIVE); PROTEIN,URINE NEGATIVE (NEGATIVE); UROBILINOGEN,URINE 0.2 mg/dL (<=1.0)
[2020-11-23 06:45] LABS: BACTERIA,URINE None Seen /HPF (None Seen); RBC,URINE None Seen /HPF (0-2); WBC,URINE None Seen /HPF (0-5)
[2020-11-23 06:46] LABS: SQUAMOUS EPITHELIAL CELL,UR Few /LPF (None Seen)
[2020-11-23 08:00] VITALS: BP 132/75
== END 2020-11-23 09:06 | disposition home or self-care (01) ==
LOC: EMS 03:39
DX: R11.2 Nausea with vomiting, unspecified (principal); R10.9 Unspecified abdominal pain; E11.9 Type 2 diabetes mellitus without complications; E78.00 Pure hypercholesterolemia, unspecified; I10 Essential (primary) hypertension; Z20.822 Contact with and (suspected) exposure to COVID-19
CPT/HCPCS: 36415; 71045; 74177; 80053; 81001; 82550; 82962; 83690; 83735; 83880; 84484; 85025; 86850; 86900; 86901; 87426; 93005; 96361; 96365; 96366; 96375; 99285; A9575; J2405; J3475; J7030; J7050; J7060; U0003; 51701